=== PATIENT | male | born 1950 | race Caucasian/White ===

== ENCOUNTER → 2019-02-04 | Outpatient (CLI) | payer MEDICARE, OTHER ==
--- NOTE | 2019-02-05 11:19 | ECHOF ---
Referral Reason:R09.02 Hypoxeia; I10 uncontrolled hypertension MEASUREMENTS -------- HEIGHT: 180.3 cm WEIGHT: 154.2 kg BP: RVIDd: 5.0 cm (< 3.3) IVSd: 1.3 cm (0.6 - 1.1) LVIDd: 2.8 cm (3.9 - 5.3) LVPWd: 1.6 cm (0.6 - 1.1) IVSs: 2.1 cm LVIDs: 1.4 cm LVPWs: 1.8 cm Ao Diam: 3.6 cm (2.0 - 3.7) AV Cusp: 1.7 cm (1.5 - 2.6) LA Diam: 4.2 cm (2.7 - 3.8) MV EXCURSION: 13.189 mm (> 18.000) MV EF SLOPE: 89 mm/s (70 - 150) EPSS: 0.2 cm MV E Rock: 0.77 m/s MV DecT: 165 ms MV A Rock: 0.68 m/s MV E/A Ratio: 1.13 RAP: 5.00 mmHg RVSP: 58.34 mmHg FINDINGS -------- Sinus rhythm. This was a technically difficult study with suboptimal views. The left ventricular size is normal. There is moderate concentric left ventricular hypertrophy. O verall left ventricular systolic function is normal with, an EF between 55 - 60 %. There is paradox ical/dysynergic septal motion consistent with right ventricular volume overload and/or elevated right ventricular end-diastolic pressure. The right ventricle is severely enlarged. The left atrial size is normal. The right atrial size is normal. 5.0mg of Lumason was utilized for enhancement of images The aortic valve is trileaflet and appears structurally normal. The mitral valve is normal. There is trace mitral regurgitation. Mild tricuspid regurgitation present. There is moderate pulmonary hypertension. The right ventric ular systolic pressure, as measured by Doppler, is 58.34mmHg. There is no pulmonic regurgitation present. The aortic root size is normal. IVC Not well visulized. There is no pericardial effusion. CONCLUSIONS -------- 1. Sinus rhythm. 2. This was a technically difficult study with suboptimal views. 3. The left ventricular size is normal. 4. There is moderate concentric left ventricular hypertrophy. 5. Overall left ventricular systolic function is normal with, an EF between 55 - 60 %. 6. There is paradoxical/dysynergic septal motion consistent with right ventricular volume overload an d/or elevated right ventricular end-diastolic pressure. 7. The right ventricle is severely enlarged. 8. The left atrial size is normal. 9. The right atrial size is normal. 10. 5.0mg of Lumason was utilized for enhancement of images 11. The aortic valve is trileaflet and appears structurally normal. 12. The mitral valve is normal. 13. There is trace mitral regurgitation. 14. Mild tricuspid regurgitation present. 15. There is moderate pulmonary hypertension. 16. The right ventricular systolic pressure, as measured by Doppler, is 58.34mmHg. 17. There is no pulmonic regurgitation present. 18. The aortic root size is normal. 19. IVC Not well visulized. 20. There is no pericardial effusion. PROSPECTING DRILLER HELPER: Laura Finnegan RDCS
== END | disposition home or self-care (01) ==
LOC: RADECHMAIN 13:15
PROVIDERS: ATTEND Family Medicine
DX: I07.1 Rheumatic tricuspid insufficiency (principal); I27.20 Pulmonary hypertension, unspecified
CPT/HCPCS: C8929; Q9950; 93306